=== PATIENT | male | born 1995 | race Two or more races ===

== ENCOUNTER 2019-12-30 12:47 | Emergency (ER) | payer MEDICAID ==
[~2019-12-30] VITALS: Ht 177.8 cm; Wt 90.2 kg
--- NOTE | 2019-12-30 12:57 | NUR ---
NA X 1
[2019-12-30 13:07] VITALS: BP 130/82
== END 2019-12-30 14:40 | disposition left against medical advice (07) ==
LOC: ED 14:34
DX: Z53.21 Procedure and treatment not carried out due to patient leaving prior to being seen by health care provider (principal)

== ENCOUNTER 2020-07-23 03:39 | Emergency (ER) | payer MEDICAID ==
[~2020-07-23] VITALS: Ht 175.3 cm; Wt 100.0 kg
[2020-07-23 03:52] VITALS: BP 148/86
--- NOTE | 2020-07-23 03:57 | NUR ---
SHORTLY AFTER TRIAGE, PT STOOD UP AND STATES THAT HE IS LEAVING.
== END 2020-07-23 03:59 | disposition left against medical advice (07) ==
LOC: ED 03:48
DX: Z53.21 Procedure and treatment not carried out due to patient leaving prior to being seen by health care provider (principal)

== ENCOUNTER 2021-02-18 03:10 | Observation (INO) | payer MEDICAID ==
[~2021-02-18] VITALS: Ht 182.9 cm; Wt 82.0 kg
--- NOTE | 2021-02-18 03:13 | NUR ---
Security called to place pt in leather restraints. MD Valerie kahn.
[2021-02-18] MEDS ORDERED: ZIPRASIDONE 20 MG INJ IM ONE ×2 (03:24→03:30)
[2021-02-18] MEDS ORDERED: SODIUM CHLORIDE 0.9% 1,000ML IVBOLUS ONE ×2 (03:30→04:00)
[2021-02-18] MEDS ORDERED: LORazepam 2 MG/ML, 1ML IVPush ONE ×2 (03:30→04:00)
--- NOTE | 2021-02-18 03:30 | NUR ---
MD Padilla face to face verbal order for locked leather restraints
[2021-02-18 03:55] LABS: BASOPHILS % (AUTO) 0 % (0-1); EOSINOPHILS % (AUTO) 0 % (1-7); LYMPHOCYTES % (AUTO) 5 % (22-44); MEAN CORPUSCULAR HEMOGLOBIN 31.3 pg (27.5-34.5); MEAN CORPUSCULAR HGB CONC 34.4 g/dL (33.2-36.2); MEAN PLATELET VOLUME 7.3 fL (7.4-10.4); MONOCYTES % (AUTO) 4 % (2-9); NEUTROPHILS % (AUTO) 91 % (42-75); PLATELET COUNT 365 x10^3/uL (130-400); RED BLOOD COUNT 5.25 x10^6/uL (4.38-5.82); RED CELL DISTRIBUTION WIDTH 14.1 % (9.4-14.8)
[2021-02-18 04:03] LABS: ALANINE AMINOTRANSFERASE 68 U/L (12-78); ALBUMIN 4.6 g/dL (3.4-5.0); ANION GAP 11 mmol/L (5-15); CHLORIDE 107 mmol/L (98-107); CREATININE 1.45 mg/dL (0.7-1.3)
[2021-02-18 04:04] LABS: SALICYLATE LEVEL < 1.7 mg/dL (2.8-20.0)
[2021-02-18 04:06] LABS: ALKALINE PHOSPHATASE 91 U/L (45-117); BILIRUBIN,TOTAL 1.2 mg/dL (0.2-1.0); TOTAL PROTEIN 8.8 g/dL (6.4-8.2)
--- NOTE | 2021-02-18 04:13 | NUR ---
Pt brought in by [employer] and EMS for acute psychotic behavior after pt was found wandering the [place] [address] appearing to hallucinate and fighting himself. [employer] arrived on scene and offered assistance to pt, which he denied. As [employer] was leaving, pt jumped on hu of [employer] car. Pt was wrestled to the ground and physically restrained. [employer] found a empty bag of a white substance on the patient. Not enough to test. [employer] believed possible methamphetamines. Pt presented to the ED agitated, in restraints, was transitioned into 4 point locked restraints by security shortly upon arrival. MD Padilla came to bedside and assessed pt. Pt presented with HR in 150's, profusely diaphoretic. Pt was given 2mg Versed and 400 Ketamine to the pt with little response. Pt alert, not oriented. GCS 13. Actively hallucinating, not making sense of words or thoughts. Pt screaming out, saying repeatedly "Im sorry." Pt denies SI/HI. Unable to fully complete clinical screening questions due to pts non cooperation with medical therapy and active acute psychosis process. Pt remains in restraints at this time, however, now after receiving medications, has calmed down significantly. Will trial removal of restraints shortly. However, Pt continues to meet criteria of need at this time.
--- NOTE | 2021-02-18 04:27 | NUR ---
Security called to trial removal of 2/4 locked leather restraints.
[2021-02-18 04:58] LABS: AMPHETAMINE SCREEN, URINE Positive (Negative); BARBITURATE SCREEN, URINE Negative (Negative); BENZODIAZEPINE SCREEN, URINE Positive (Negative); CANNABINOID SCREEN, URINE Negative (Negative); COCAINE SCREEN, URINE Negative (Negative); METHADONE SCREEN, URINE Negative (Negative); OPIATE SCREEN, URINE Negative (Negative)
--- NOTE | 2021-02-18 05:26 | NUR ---
Security to remove remaining 2 locked restraints at this time.
--- NOTE | 2021-02-18 05:30 | NUR ---
All restraints removed at this time. Paper restraint documentation placed in pts chart. Signed and initialed.
--- NOTE | 2021-02-18 06:51 | NUR ---
Report given to JAVIER Marcelo
--- NOTE | 2021-02-18 07:20 | NUR ---
PT RESTING CALMLY IN BED. NO STATED NEEDS AT THIS TIME. SITTER AT DOOR.
--- NOTE | 2021-02-18 08:40 | NUR ---
REPORT TO GILL HERRERA. PT MOVED TO ROOM 3
--- NOTE | 2021-02-18 10:56 | NUR ---
PT AMBULATED STEADILY TO RESTROOM. PT STATES "I FEEL MUCH BETTER". PT DENIES ANY HALLUCINATIONS. PT STATES HE DID CRYSTAL METH LAST NIGTH AND IT MADE HIM "CRAZY". MEAL TRAY PROVIDED. EDMD AWARE.
[2021-02-18 11:20] VITALS: BP 135/78
== END 2021-02-18 11:23 | disposition home or self-care (01) ==
LOC: ED 06:05 → EDIP 06:06
PROVIDERS: ADMIT Emergency Medicine; ATTEND Emergency Medicine
DX: F15.151 Other stimulant abuse with stimulant-induced psychotic disorder with hallucinations (principal); F15.150 Other stimulant abuse with stimulant-induced psychotic disorder with delusions; F15.129 Other stimulant abuse with intoxication, unspecified; R00.0 Tachycardia, unspecified; N28.9 Disorder of kidney and ureter, unspecified; S00.81XA Abrasion of other part of head, initial encounter; G93.40 Encephalopathy, unspecified; Z63.8 Other specified problems related to primary support group; Z78.1 Physical restraint status; Z79.899 Other long term (current) drug therapy; X58.XXXA Exposure to other specified factors, initial encounter; Y93.89 Activity, other specified; Y92.89 Other specified places as the place of occurrence of the external cause
CPT/HCPCS: 36415; 80053; 80299; 80307; 80320; 80329; 85025; 96361; 96372; 96374; 99291; G0378; J2060; J3486; J7030; G0480